=== PATIENT | female | born 1930 | race African-American/Black ===

== ENCOUNTER 2016-09-23 09:07 | Outpatient (CLI) | payer MEDICARE, MEDICAID ==
[2016-09-23 10:33] LABS: ALT (SGPT) 9 U/L (0-55); AST (SGOT) 15 U/L (5-34); Alkaline Phosphatase 109 U/L (40-150); Anion Gap 12 mmol/L (10-20); BUN (Urea Nitrogen) 24 mg/dL (9.8-20.1); Bilirubin, Total 0.7 mg/dL (0.2-1.2); Calc. Creatinine Clearance 0 mL/min (70-130); Calcium 8.8 mg/dL (7.8-10.44); Carbon Dioxide 27 mmol/L (23-31); Chloride 111 mmol/L (98-107); Estimated GFR-MDRD 46; Globulin 2.5 g/dL (2.4-3.5); LDL Cholesterol, Calculated 95 mg/dL; Protein, Total 5.7 g/dL (5.8-8.1)
[2016-09-23 14:05] LABS: Mean Platelet Volume 7.4 fL (7.4-10.4); Red Blood Cell (RBC) Count 3.64 mill/uL (4.20-5.40); White Blood Cell (WBC) Count 2.8 thou/uL (4.8-10.8)
[2016-09-23 14:06] LABS: #Basophils 0.1 thou/uL (0.0-0.2); #Eosinphils 0.1 thou/uL (0.0-0.7); #Lymphocytes 1.4 thou/uL (1.20-3.40); #Monocytes 0.4 thou/uL (0.11-0.59); #Neutrophils 0.8 thou/uL (1.40-6.50); %Basophils 1.8 % (0.0-1.0); %Eosinophils 4.9 % (0.0-10.0); %Lymphocytes 50.3 % (21.0-51.0); %Monocytes 12.8 % (0.0-10.0)
== END 2016-09-23 09:08 ==
LOC: NAVSJIPCSP 09:07
PROVIDERS: ATTEND Internal Medicine
DX: I67.81 Acute cerebrovascular insufficiency (principal); I12.9 Hypertensive chronic kidney disease with stage 1 through stage 4 chronic kidney disease, or unspecified chronic kidney disease; N18.3 Chronic kidney disease, stage 3 (moderate); M19.041 Primary osteoarthritis, right hand; Z79.899 Other long term (current) drug therapy
CPT/HCPCS: 36415; 80053; 80061; 84443; 85652; 86140

== ENCOUNTER 2016-10-07 07:15 | Outpatient (CLI) | payer MEDICARE, MEDICAID ==
[2016-10-07 08:27] LABS: Anion Gap 14 mmol/L (10-20); BUN (Urea Nitrogen) 27 mg/dL (9.8-20.1); Calc. Creatinine Clearance 0 mL/min (70-130); Calcium 8.7 mg/dL (7.8-10.44); Carbon Dioxide 24 mmol/L (23-31); Chloride 112 mmol/L (98-107); Estimated GFR-MDRD 39
== END 2016-10-07 07:16 | disposition home or self-care (01) ==
LOC: NAV LABSP 07:15
PROVIDERS: ATTEND Internal Medicine
DX: N19 Unspecified kidney failure (principal)
CPT/HCPCS: 80048

== ENCOUNTER 2016-10-25 07:22 | Outpatient (CLI) | payer MEDICARE, OTHER ==
[2016-10-25 08:53] LABS: Anion Gap 16 mmol/L (10-20); BUN (Urea Nitrogen) 20 mg/dL (9.8-20.1); Calc. Creatinine Clearance 0 mL/min (70-130); Calcium 8.4 mg/dL (7.8-10.44); Carbon Dioxide 23 mmol/L (23-31); Chloride 108 mmol/L (98-107); Estimated GFR-MDRD 49
== END 2016-10-25 07:23 | disposition home or self-care (01) ==
LOC: NAV LABSP 07:22
PROVIDERS: ATTEND Internal Medicine
DX: E78.5 Hyperlipidemia, unspecified (principal); E10.9 Type 1 diabetes mellitus without complications; I10 Essential (primary) hypertension
CPT/HCPCS: 36415; 80048

== ENCOUNTER 2016-11-17 08:15 | Outpatient (CLI) | payer MEDICARE, OTHER ==
[2016-11-17 10:02] LABS: Anion Gap 15 mmol/L (10-20); BUN (Urea Nitrogen) 24 mg/dL (9.8-20.1); Calc. Creatinine Clearance 0 mL/min (70-130); Calcium 8.7 mg/dL (7.8-10.44); Carbon Dioxide 22 mmol/L (23-31); Chloride 109 mmol/L (98-107); Estimated GFR-MDRD 50
== END 2016-11-17 08:16 | disposition home or self-care (01) ==
LOC: NAV LABSP 08:15
PROVIDERS: ATTEND Internal Medicine
DX: E78.5 Hyperlipidemia, unspecified (principal); E10.9 Type 1 diabetes mellitus without complications; I10 Essential (primary) hypertension
CPT/HCPCS: 36415; 80048

== ENCOUNTER 2016-12-24 11:09 | Outpatient (CLI) | payer MEDICARE, MEDICAID | END 2016-12-24 11:10 | disposition home or self-care (01) | LOC: NAV LABSP 11:09 | PROVIDERS: ATTEND Internal Medicine | DX: H92.10 Otorrhea, unspecified ear (principal) | CPT/HCPCS: 87070; 87077; 87186; 87205 ==

== ENCOUNTER 2017-01-06 07:36 | Outpatient (CLI) | payer MEDICARE, MEDICAID ==
[2017-01-06 08:54] LABS: #Basophils 0.1 thou/uL (0.0-0.2); #Eosinphils 0.1 thou/uL (0.0-0.7); #Lymphocytes 1.2 thou/uL (1.20-3.40); #Monocytes 0.4 thou/uL (0.11-0.59); #Neutrophils 1.3 thou/uL (1.40-6.50); %Basophils 1.7 % (0.0-1.0); %Eosinophils 3.6 % (0.0-10.0); %Lymphocytes 37.7 % (21.0-51.0); %Monocytes 14.1 % (0.0-10.0); %Neutrophils 42.9 % (42.0-75.0); Mean Corpuscular HGB CONC 31.8 g/dL (32.0-36.0); Mean Corpuscular Hemoglobin 29.1 pg (27.0-31.0); Mean Corpuscular Volume 91.6 fl (81.0-99.0); Mean Platelet Volume 7.1 fL (7.4-10.4); Platelet Count 143 thou/uL (130-400); RBC Distribution Width 12.8 % (11.5-14.5); Red Blood Cell (RBC) Count 3.42 mill/uL (4.20-5.40); White Blood Cell (WBC) Count 3.1 thou/uL (4.8-10.8)
[2017-01-06 09:06] LABS: ALT (SGPT) 11 U/L (0-55); AST (SGOT) 16 U/L (5-34); Albumin 3.4 g/dL (3.4-4.8); Alkaline Phosphatase 126 U/L (40-150); Anion Gap 15 mmol/L (10-20); BUN (Urea Nitrogen) 36 mg/dL (9.8-20.1); Bilirubin, Total 0.4 mg/dL (0.2-1.2); Calc. Creatinine Clearance 0 mL/min (70-130); Calcium 8.6 mg/dL (7.8-10.44); Carbon Dioxide 21 mmol/L (23-31); Cardiac Risk 2.5 (Less than 4.5); Chloride 110 mmol/L (98-107); Cholesterol 143 mg/dL (< 200 Desired); Estimated GFR-MDRD 28; Globulin 2.8 g/dL (2.4-3.5); Glucose 84 mg/dL (83-110); HDL Cholesterol 58 mg/dL (>60 Neg Risk); LDL Cholesterol, Calculated 72 mg/dL; Potassium 4.5 mmol/L (3.5-5.1); Protein, Total 6.2 g/dL (5.8-8.1); Sodium 141 mmol/L (136-145); Triglycerides 64 mg/dL (Less than 150)
== END 2017-01-06 07:37 | disposition home or self-care (01) ==
LOC: NAV LABSP 07:36
PROVIDERS: ATTEND Internal Medicine
DX: E78.5 Hyperlipidemia, unspecified (principal); E10.9 Type 1 diabetes mellitus without complications; I10 Essential (primary) hypertension
CPT/HCPCS: 36415; 80053; 80061; 85025

== ENCOUNTER 2017-02-02 08:20 | Outpatient (CLI) | payer MEDICARE, MEDICAID ==
[2017-02-02 09:36] LABS: Anion Gap 13 mmol/L (10-20); BUN (Urea Nitrogen) 25 mg/dL (9.8-20.1); Calc. Creatinine Clearance 0 mL/min (70-130); Calcium 8.4 mg/dL (7.8-10.44); Carbon Dioxide 25 mmol/L (23-31); Chloride 113 mmol/L (98-107); Estimated GFR-MDRD 49; Glucose 84 mg/dL (83-110); Potassium 4.6 mmol/L (3.5-5.1); Sodium 146 mmol/L (136-145)
== END 2017-02-02 08:21 | disposition home or self-care (01) ==
LOC: NAV LABSP 08:20
PROVIDERS: ATTEND Internal Medicine
DX: E10.9 Type 1 diabetes mellitus without complications (principal); E78.5 Hyperlipidemia, unspecified; I10 Essential (primary) hypertension
CPT/HCPCS: 36415; 80048

== ENCOUNTER 2017-02-25 16:44 | Outpatient (CLI) | payer MEDICARE, MEDICAID ==
[2017-02-25 17:50] LABS: #Basophils 0.1 thou/uL (0.0-0.2); #Eosinphils 0.1 thou/uL (0.0-0.7); #Monocytes 0.5 thou/uL (0.11-0.59); %Basophils 1.5 % (0.0-1.0); %Eosinophils 1.9 % (0.0-10.0); %Lymphocytes 26.8 % (21.0-51.0); %Monocytes 12.9 % (0.0-10.0); %Neutrophils 56.9 % (42.0-75.0); Mean Corpuscular HGB CONC 30.5 g/dL (32.0-36.0); Mean Corpuscular Volume 91.8 fl (81.0-99.0); Mean Platelet Volume 7.1 fL (7.4-10.4); Platelet Count 169 thou/uL (130-400); RBC Distribution Width 13.7 % (11.5-14.5); Red Blood Cell (RBC) Count 4.28 mill/uL (4.20-5.40); White Blood Cell (WBC) Count 3.6 thou/uL (4.8-10.8)
== END 2017-02-25 16:45 | disposition home or self-care (01) ==
LOC: NAV LABSP 16:44
PROVIDERS: ATTEND Internal Medicine
DX: I50.9 Heart failure, unspecified (principal); E78.5 Hyperlipidemia, unspecified; I69.991 Dysphagia following unspecified cerebrovascular disease; N19 Unspecified kidney failure
CPT/HCPCS: 36415; 85025

== ENCOUNTER 2017-03-04 07:42 | Outpatient (CLI) | payer MEDICARE, OTHER ==
[2017-03-04 08:56] LABS: Anion Gap 15 mmol/L (10-20); BUN (Urea Nitrogen) 19 mg/dL (9.8-20.1); Calc. Creatinine Clearance 0 mL/min (70-130); Calcium 8.8 mg/dL (7.8-10.44); Carbon Dioxide 22 mmol/L (23-31); Chloride 110 mmol/L (98-107); Estimated GFR-MDRD 58; Glucose 85 mg/dL (83-110); Potassium 4.4 mmol/L (3.5-5.1); Sodium 143 mmol/L (136-145)
[2017-03-04 09:28] LABS: Hemoglobin 10.6 g/dL (12.0-16.0); Mean Corpuscular HGB CONC 30.6 g/dL (32.0-36.0); Mean Corpuscular Hemoglobin 28.3 pg (27.0-31.0); Mean Corpuscular Volume 92.4 fl (81.0-99.0); Mean Platelet Volume 7.3 fL (7.4-10.4); Platelet Count 155 thou/uL (130-400); Red Blood Cell (RBC) Count 3.76 mill/uL (4.20-5.40); White Blood Cell (WBC) Count 2.7 thou/uL (4.8-10.8)
[2017-03-04 09:29] LABS: Eosinophils 1 % (0-10); Lymphocytes 47 % (21-51); MDiff Complete? YES; Monocytes 11 % (0-10); Neutrophil 41 % (42-75); PLT Morphology Comment Appears Adequate
== END 2017-03-04 07:43 | disposition home or self-care (01) ==
LOC: NAV LABSP 07:42
PROVIDERS: ATTEND Internal Medicine
DX: E78.5 Hyperlipidemia, unspecified (principal); J44.9 Chronic obstructive pulmonary disease, unspecified; E10.9 Type 1 diabetes mellitus without complications; I10 Essential (primary) hypertension
CPT/HCPCS: 36415; 80048; 85025

== ENCOUNTER 2017-03-17 09:50 | Outpatient (CLI) | payer MEDICARE, OTHER ==
[2017-03-17 10:23] LABS: Anion Gap 15 mmol/L (10-20); BUN (Urea Nitrogen) 18 mg/dL (9.8-20.1); Calc. Creatinine Clearance 0 mL/min (70-130); Calcium 8.6 mg/dL (7.8-10.44); Carbon Dioxide 24 mmol/L (23-31); Chloride 108 mmol/L (98-107); Estimated GFR-MDRD 55; Glucose 83 mg/dL (83-110); Sodium 143 mmol/L (136-145)
== END 2017-03-17 09:51 | disposition home or self-care (01) ==
LOC: NAV LABSP 09:50
PROVIDERS: ATTEND Internal Medicine
DX: N18.3 Chronic kidney disease, stage 3 (moderate) (principal)
CPT/HCPCS: 36415; 80048

== ENCOUNTER 2017-04-09 13:28 | Outpatient (CLI) | payer MEDICARE, MEDICAID | END 2017-04-09 13:29 | disposition home or self-care (01) | LOC: NAV LABSP 13:28 | PROVIDERS: ATTEND Internal Medicine | DX: H92.01 Otalgia, right ear (principal); H92.11 Otorrhea, right ear | CPT/HCPCS: 87070; 87205 ==

== ENCOUNTER 2017-04-26 07:57 | Outpatient (CLI) | payer MEDICAID, MEDICARE, OTHER ==
[2017-04-26 09:40] LABS: ALT (SGPT) 18 U/L (8-55); AST (SGOT) 22 U/L (5-34); Albumin 3.2 g/dL (3.4-4.8); Alkaline Phosphatase 122 U/L (40-150); Anion Gap 15 mmol/L (10-20); BUN (Urea Nitrogen) 18 mg/dL (9.8-20.1); Bilirubin, Total 0.7 mg/dL (0.2-1.2); Calc. Creatinine Clearance 0 mL/min (70-130); Calcium 8.8 mg/dL (7.8-10.44); Carbon Dioxide 23 mmol/L (23-31); Cardiac Risk 2.9 (Less than 4.5); Chloride 110 mmol/L (98-107); Cholesterol 146 mg/dl (< 200 Desired); Estimated GFR-MDRD 55; Globulin 2.8 g/dL (2.4-3.5); Glucose 96 mg/dL (83-110); HDL Cholesterol 51 mg/dL (>60 Neg Risk); LDL Cholesterol, Calculated 78 mg/dL; Potassium 4.3 mmol/L (3.5-5.1); Sodium 144 mmol/L (136-145); Triglycerides 84 mg/dL (Less than 150)
[2017-04-26 20:36] LABS: #Eosinphils 0.1 thou/uL (0.0-0.7); #Monocytes 0.3 thou/uL (0.11-0.59); %Basophils 1.7 % (0.0-1.0); %Eosinophils 4.7 % (0.0-10.0); %Lymphocytes 40.8 % (21.0-51.0); %Monocytes 12.8 % (0.0-10.0); Hemoglobin 11.2 g/dL (12.0-16.0); Large Platelets SLIGHT; MDiff Complete? YES; Mean Corpuscular HGB CONC 30.3 g/dL (32.0-36.0); Mean Corpuscular Hemoglobin 27.9 pg (27.0-31.0); Mean Platelet Volume 7.5 fL (7.4-10.4); PLT Morphology Comment Appears Adequate; Platelet Count 150 thou/uL (130-400); RBC Distribution Width 14.2 % (11.5-14.5); RBC Morphology Normal; Red Blood Cell (RBC) Count 4.01 mill/uL (4.20-5.40); White Blood Cell (WBC) Count 2.4 thou/uL (4.8-10.8)
== END 2017-04-26 07:58 | disposition home or self-care (01) ==
LOC: NAV LABSP 07:57
PROVIDERS: ATTEND Internal Medicine
DX: E10.9 Type 1 diabetes mellitus without complications (principal); E78.5 Hyperlipidemia, unspecified; I10 Essential (primary) hypertension
CPT/HCPCS: 36415; 80053; 80061; 85025

== ENCOUNTER 2017-06-09 07:10 | Outpatient (CLI) | payer MEDICARE ==
[2017-06-09 08:27] LABS: Anion Gap 13 mmol/L (10-20); BUN (Urea Nitrogen) 29 mg/dL (9.8-20.1); Calc. Creatinine Clearance 0 mL/min (70-130); Calcium 8.2 mg/dL (7.8-10.44); Carbon Dioxide 26 mmol/L (23-31); Chloride 117 mmol/L (98-107); Estimated GFR-MDRD 40; Glucose 100 mg/dL (83-110); Potassium 4.3 mmol/L (3.5-5.1); Sodium 152 mmol/L (136-145)
== END 2017-06-09 07:11 | disposition home or self-care (01) ==
LOC: NAV LABSP 07:10
PROVIDERS: ATTEND Internal Medicine
DX: E78.5 Hyperlipidemia, unspecified (principal); I10 Essential (primary) hypertension; E10.9 Type 1 diabetes mellitus without complications
CPT/HCPCS: 36415; 80048

== ENCOUNTER 2017-06-10 07:41 | Outpatient (CLI) | payer MEDICARE ==
[2017-06-10 08:27] LABS: #Eosinphils 0.1 thou/uL (0.0-0.7); #Monocytes 0.4 thou/uL (0.11-0.59); #Neutrophils 2.4 thou/uL (1.40-6.50); %Eosinophils 2.2 % (0.0-10.0); %Lymphocytes 26.1 % (21.0-51.0); %Monocytes 11.1 % (0.0-10.0); %Neutrophils 59.6 % (42.0-75.0); Hemoglobin 9.7 g/dL (12.0-16.0); Mean Corpuscular HGB CONC 30.9 g/dL (32.0-36.0); Mean Corpuscular Hemoglobin 27.7 pg (27.0-31.0); Mean Corpuscular Volume 89.6 fl (81.0-99.0); Mean Platelet Volume 7.1 fL (7.4-10.4); Platelet Count 236 thou/uL (130-400); RBC Distribution Width 14.1 % (11.5-14.5); White Blood Cell (WBC) Count 3.9 thou/uL (4.8-10.8)
== END 2017-06-10 07:42 | disposition home or self-care (01) ==
LOC: NAV LABSP 07:41
PROVIDERS: ATTEND Internal Medicine
DX: M15.0 Primary generalized (osteo)arthritis (principal); I10 Essential (primary) hypertension
CPT/HCPCS: 36415; 84550; 85025

== ENCOUNTER 2018-01-30 04:56 | Emergency (ER) | payer MEDICARE, OTHER ==
[2018-01-30 05:43] LABS: INR-International Normal Ratio 1.2; PTT 30.3 SEC (22.9-36.1); Prothrombin Time 15.3 SEC (12.0-14.7)
[2018-01-30 05:56] LABS: CKMB 3.9 ng/mL (0-6.6)
[2018-01-30 06:03] LABS: Band 10 % (5-11); Eosinophils 3 % (0-10); Hemoglobin 14.6 g/dL (12.0-16.0); Lymphocytes 31 % (21-51); MDiff Complete? YES; Mean Corpuscular HGB CONC 28.3 g/dL (32.0-36.0); Mean Corpuscular Hemoglobin 26.9 pg (27.0-31.0); Mean Platelet Volume 10.1 fL (7.4-10.4); Monocytes 4 % (0-10); Neutrophil 52 % (42-75); PLT Morphology Comment Appears Adequate; Platelet Count 157 thou/uL (130-400); RBC Distribution Width 17.9 % (11.5-14.5); RBC Morphology Normal; Red Blood Cell (RBC) Count 5.43 mill/uL (4.20-5.40); White Blood Cell (WBC) Count 3.5 thou/uL (4.8-10.8)
[2018-01-30 06:05] LABS: Troponin I 0.867 ng/mL (< 0.028)
[2018-01-30 06:07] LABS: ALT (SGPT) 31 U/L (8-55); AST (SGOT) 51 U/L (5-34); Albumin 3.2 g/dL (3.4-4.8); Alkaline Phosphatase 256 U/L (40-150); Anion Gap 15 mmol/L (10-20); BUN (Urea Nitrogen) 35 mg/dL (9.8-20.1); CK (CPK) 51 U/L (29-168); Calc. Creatinine Clearance 0 mL/min (70-130); Calcium 8.9 mg/dL (7.8-10.44); Carbon Dioxide 23 mmol/L (23-31); Chloride 120 mmol/L (98-107); Estimated GFR-MDRD 29; Globulin 3.6 g/dL (2.4-3.5); Glucose 88 mg/dL (83-110); Potassium 5.1 mmol/L (3.5-5.1); Protein, Total 6.8 g/dL (6.0-8.3); Sodium 153 mmol/L (136-145)
[2018-01-30 06:30] LABS: Bilirubin Negative (Negative); Blood, Urine Trace (Negative); Clarity Clear (Clear); Glucose, Urine (Dipstick) Negative (Negative); Leukocyte Negative (Negative); Nitrite Negative (Negative); Protein, Urine (Dipstick) Negative (Neg-Trace); Urobilinogen 0.2 mg/dL (0.2-1.0); pH, Urine 5.5 (5.0-9.0)
[2018-01-30 06:33] LABS: Bacteria/HPF None Seen HPF (None Seen); RBC/HPF 0-3 HPF (0-3); Squamous Epithelial 0-3 HPF (0-3); WBC/HPF 0-3 HPF (0-3)
[2018-01-30] MEDS ORDERED: Dextrose 5 % And 0.9 % NaCl 1,000 ML ONE (06:54)
--- NOTE | 2018-01-30 08:56 | RAD ---
ONE VIEW CHEST: History: Altered mental status. Comparison: 09-09-17 FINDINGS: Atherosclerosis of the aorta. Enlarged cardiac silhouette. Patchy interstitial and alveolar infiltrat e. Small right sided pleural effusion. No definite pneumothorax. IMPRESSION: 1. Atherosclerosis. 2. Cardiomegaly. 3. Patchy interstitial and alveolar infiltrates with small left sided pleural effusion. POS: [facility]
== END 2018-01-30 07:15 | disposition short-term general hospital (02) ==
LOC: NAV ERS 04:56 → EDBD 04:56 → NAV ERS 07:15
DX: J18.9 Pneumonia, unspecified organism (principal); R79.89 Other specified abnormal findings of blood chemistry; E87.0 Hyperosmolality and hypernatremia; E10.9 Type 1 diabetes mellitus without complications; K21.9 Gastro-esophageal reflux disease without esophagitis; E78.5 Hyperlipidemia, unspecified; I10 Essential (primary) hypertension; M10.9 Gout, unspecified; J44.9 Chronic obstructive pulmonary disease, unspecified; I48.91 Unspecified atrial fibrillation; F31.9 Bipolar disorder, unspecified; Z87.891 Personal history of nicotine dependence; F03.90 Unspecified dementia, unspecified severity, without behavioral disturbance, psychotic disturbance, mood disturbance, and anxiety; Z79.899 Other long term (current) drug therapy
CPT/HCPCS: 51702; 71045; 80053; 81003; 81015; 82553; 84484; 85025; 85610; 85730; 87040; 87086; 93005; 94760; 96374; J1956; J7042